=== PATIENT | female | born 1995 | race Caucasian/White ===

== ENCOUNTER 2024-07-16 19:52 | Emergency (ER) | payer OTHER, SELFPAY ==
--- NOTE | 2024-07-16 19:58 | [facility].EDGENADL ---
Discharge Plan Disposition Patient Disposition: Home, Self-Care Condition: Good Referrals Follow up/Referrals: Provider,Referral, MD [Primary Care Provider] - See instructions Activity Restrictions/Add. Instructions Additional Instructions/Restrictions: I recommend following up with your PCP for further evaluation especially if you have continued new or worsening signs or symptoms. May of course return to the emergency department as needed. Clinical Impressions Clinical Impression: Near syncope Headache Qualifiers: Headache type: unspecified Headache chronicity pattern: acute headache Intractability: not intractable Qualified Code(s): R51.9 - Headache, unspecified Print Language Print Language: Martiniquais Discharge ED Provider: Houston Milner General Adult HPI <RIC Rubin - Last Filed: 07/16/24 21:51> General Chief complaint: Dizziness Stated complaint: nausea,shaky,numb hands , headache Time Seen by Provider: 07/16/24 19:58 History of Present Illness HPI narrative: Patient presents for evaluation of headache nausea feeling shaky . Patient was looking at property to place her trailer and had acute onset of feeling shaky nausea felt like she might pass out. Patient does not have any chronic medical problems and is on no home medications. She does not smoke or drink. She thought it might be low blood sugar and went to a local fast food restaurant and was able to drink a sugar beverage however it did not improve. She then began having a headache. She denies any chest pain shortness of breath fever chills hemoptysis hematochezia melena vomiting diarrhea but does report that she feels like her heart is racing. Related Data Allergies Allergy/AdvReac Type Severity Reaction Status Date / Time No Known Allergies Allergy Verified 07/16/24 20:24 PFSH <RIC Rubin - Last Filed: 07/16/24 21:51> [facility] Disclaimer: The information contained in this section may have been updated after the patient was seen, as this information can be updated by other users. Social History (Updated 07/16/24 @ 21:51 by RIC Rubin) Smoking Status: Never smoker alcohol intake: never current occupational status: employed Travel in the last 8 weeks?: None Have you lived/traveled outside [place] in past 30 days?: No Contact w/someone who lives/traveled outside [place] past 30 days?: No Exposure to someone with infectious disease in past 14 days?: No Do you have a fever (greater than 100.4 F or 38 C)?: No Have you tested positive for COVID-19?: No Exposed to someone with COVID-19 in past 14 days?: No Do you have a sore throat?: No Do you have a cough?: No Do you have any weakness?: No Do you have any diarrhea?: No Are you experiencing any unusual bleeding?: No Do you have any muscle aches/pain?: No Do you have any abdominal pain?: No Are you experiencing loss of taste or smell?: No <RIC Rubin - Last Filed: 07/16/24 21:51> ROS Obtained: Yes Systems reviewed as appropriate & no additional complaints except as documented Physical Exam <RIC Rubin - Last Filed: 07/16/24 21:51> General General appearance: alert Respiratory Respiratory exam: Present normal lung sounds bilaterally Cardiovascular Cardiovascular exam: Present regular rate Neurological Exam Neurological exam: Present alert Medical Decision Making <RIC Rubin - Last Filed: 07/16/24 21:51> Medical Records Medical records reviewed: Yes I reviewed the patient's medical records. Screening: Per USPSTF and CDC recommendations, given the prevalence of disease in our region, it is our hospital?s policy to screen for HIV and viral Hepatitis for all patients aged 18 and over and those with ongoing risk factors. Asif Inquiry Pt receiving controlled substance: No Vital Signs: 07/16/24 20:04 07/16/24 21:31 07/16/24 21:54 Temperature 97.6 F 97.9 F Temperature Source Oral Oral Pulse Rate 82 77 Pulse Rate [Right Radial] 70 Respiratory Rate 16 16 16 Blood Pressure 106/61 L 106/61 L Blood Pressure [Right Arm] 131/82 Blood Pressure Mean [Right Arm] 98 Blood Pressure Position [Right Arm] Sitting 02 Sat by Pulse Oximetry 100 100 Oxygen Delivery Method Room Air Room Air Lab Data Lab results reviewed: Yes I reviewed the patient's lab results. Lab Results 07/16/24 20:05: WBC 8.2, RBC 4.16 L, Hgb 13.6, Hct 39.4, MCV 94.7, MCH 32.7 H, MCHC 34.5, RDW 11.2 L, Plt Count 285, MPV 10.2, Neut % (Auto) 65.4, Lymph % (Auto) 26.6, [place] % (Auto) 6.2, Eos % (Auto) 1.1, Baso % (Auto) 0.5, Neut # (Auto) 5.4, Lymph # (Auto) 2.2, [place] # (Auto) 0.5, Eos # (Auto) 0.1, Baso # (Auto) 0.0, D-Dimer 0.61 H, Sodium 134 L, Potassium 3.6, Chloride 101, Carbon Dioxide 29, Anion Gap 7.6, BUN 12, Creatinine 0.80, Estimated Creat Clear 121, Estimated GFR 86, Est GFR ( Amer) 104, Glucose 106 H, Calcium 9.5, Magnesium 2.2, Total Bilirubin 0.6, AST 25, ALT 20, Alkaline Phosphatase 44, Total Protein 7.3, Albumin 4.8, Globulin 2.5, Albumin/Globulin Ratio 1.9 H, TSH 2.35, Free T4 Index 2.5 L, Thyroxine (T4) 7.1, T3 Uptake 35, Serum HCG, Qual Negative 07/16/24 20:05 07/16/24 20:05 Orders (Tests/Meds): ED MEDICATIONS Discontinued Medications Generic Name Dose Route Start Last Admin Trade Name Freq PRN Reason Stop Dose Admin Dexamethasone Sodium Phosphate 10 mg 07/16/24 20:37 07/16/24 20:54 Dexamethasone 4mg/Ml 5ml Mdv IV 07/16/24 20:38 10 mg ONCE ONE Administration Diphenhydramine HCl 50 mg 07/16/24 20:37 07/16/24 20:55 Diphenhydramine 50mg/Ml Vial IV 07/16/24 20:38 50 mg ONCE ONE Administration Ondansetron HCl 4 mg 07/16/24 20:19 07/16/24 20:26 Ondansetron 4mg/2ml Vial IV 07/16/24 20:20 4 mg ONCE ONE Administration ORDERS Category Date Time Status CBC w/Auto Diff [Complete Blood Count Auto Diff] Stat Lab 07/16/24 20:05 Completed CMP [Comprehensive Metabolic Panel] Stat Lab 07/16/24 20:05 Completed D-Dimer Stat Lab 07/16/24 20:05 Completed HCG Qualitative, Serum Stat Lab 07/16/24 20:05 Completed Magnesium Stat Lab 07/16/24 20:05 Completed Thyroid Panel Stat Lab 07/16/24 20:05 Completed Medical Decision Narrative: In summary patient is a 28-year-old female who presents to the emergency department for evaluation of nausea, feeling shaky and headache.. Patient is hemodynamically stable with a blood pressure of 131/82 heart rate of 70 with normal sinus rhythm on the bedside monitor breathing 16 times a minute satting at 100% on room air upon arrival, afebrile at 97.6. Patient states that she feels like her heart is racing even though her heart rate 70.. Physical exam is remarkable for clear breath sounds with normal heart sounds Rachelle Coma Score 15 pupils equal round reactive to light patient has no nuchal rigidity.. Differential diagnosis includes electrolyte abnormality versus hypoglycemia versus near syncope versus panic attack etc. Initial workup will be conducted with hematologic labs twelve-lead EKG. Initial interventions include crystalloid bolus headache cocktail of Decadron diphenhydramine Toradol Zofran. Initial workup reviewed by me and her hematologic labs significant for white count of 8.2 normal H&H with no neutrophilic shift, D-dimer 0.61 a few years criteria thrombus is ruled out, sodium is 134 glucose 106 TSH is 2.35 and serum hCG is negative, EKG shows normal sinus rhythm without evidence of ACS.. Upon repeat evaluation patient reports complete resolution of her headache and her repeat fingerstick blood sugar is 120. Given this we have essentially ruled out any serious or life-threatening condition and while there remains diagnostic uncertainty as to the cause of her symptoms certainly hypoglycemia is possible as well as tachyarrhythmia even though we found no evidence of such here. I have advised the patient to follow-up closely with her PCP if she has continued new or worsening signs or symptoms or return to the ER as needed. <Houston Milner MD - Last Filed: 07/16/24 22:04> Vital Signs: 07/16/24 20:04 07/16/24 21:31 07/16/24 21:54 Temperature 97.6 F 97.9 F Temperature Source Oral Oral Pulse Rate 82 77 Pulse Rate [Right Radial] 70 Respiratory Rate 16 16 16 Blood Pressure 106/61 L 106/61 L Blood Pressure [Right Arm] 131/82 Blood Pressure Mean [Right Arm] 98 Blood Pressure Position [Right Arm] Sitting 02 Sat by Pulse Oximetry 100 100 Oxygen Delivery Method Room Air Room Air Lab Data Lab Results 07/16/24 20:05: WBC 8.2, RBC 4.16 L, Hgb 13.6, Hct 39.4, MCV 94.7, MCH 32.7 H, MCHC 34.5, RDW 11.2 L, Plt Count 285, MPV 10.2, Neut % (Auto) 65.4, Lymph % (Auto) 26.6, [place] % (Auto) 6.2, Eos % (Auto) 1.1, Baso % (Auto) 0.5, Neut # (Auto) 5.4, Lymph # (Auto) 2.2, [place] # (Auto) 0.5, Eos # (Auto) 0.1, Baso # (Auto) 0.0, D-Dimer 0.61 H, Sodium 134 L, Potassium 3.6, Chloride 101, Carbon Dioxide 29, Anion Gap 7.6, BUN 12, Creatinine 0.80, Estimated Creat Clear 121, Estimated GFR 86, Est GFR ( Amer) 104, Glucose 106 H, Calcium 9.5, Magnesium 2.2, Total Bilirubin 0.6, AST 25, ALT 20, Alkaline Phosphatase 44, Total Protein 7.3, Albumin 4.8, Globulin 2.5, Albumin/Globulin Ratio 1.9 H, TSH 2.35, Free T4 Index 2.5 L, Thyroxine (T4) 7.1, T3 Uptake 35, Serum HCG, Qual Negative Orders (Tests/Meds): ED MEDICATIONS Discontinued Medications Generic Name Dose Route Start Last Admin Trade Name Freq PRN Reason Stop Dose Admin Dexamethasone Sodium Phosphate 10 mg 07/16/24 20:37 07/16/24 20:54 Dexamethasone 4mg/Ml 5ml Mdv IV 07/16/24 20:38 10 mg ONCE ONE Administration Diphenhydramine HCl 50 mg 07/16/24 20:37 07/16/24 20:55 Diphenhydramine 50mg/Ml Vial IV 07/16/24 20:38 50 mg ONCE ONE Administration Ondansetron HCl 4 mg 07/16/24 20:19 07/16/24 20:26 Ondansetron 4mg/2ml Vial IV 07/16/24 20:20 4 mg ONCE ONE Administration ORDERS Category Date Time Status CBC w/Auto Diff [Complete Blood Count Auto Diff] Stat Lab 07/16/24 20:05 Completed CMP [Comprehensive Metabolic Panel] Stat Lab 07/16/24 20:05 Completed D-Dimer Stat Lab 07/16/24 20:05 Completed HCG Qualitative, Serum Stat Lab 07/16/24 20:05 Completed Magnesium Stat Lab 07/16/24 20:05 Completed Thyroid Panel Stat Lab 07/16/24 20:05 Completed ECG Data Tracing #1: I reviewed this ECG and interpreted as documented below: (Sinus rhythm with sinus arrhythmia 72 bpm with NV interval 148, QRS 102, QTc 431. Normal axis no acute ischemic change) Medical Decision Narrative: In summary patient is a 28-year-old female who presents to the emergency department for evaluation of nausea, feeling shaky and headache.. Patient is hemodynamically stable with a blood pressure of 131/82 heart rate of 70 with normal sinus rhythm on the bedside monitor breathing 16 times a minute satting at 100% on room air upon arrival, afebrile at 97.6. Patient states that she feels like her heart is racing even though her heart rate 70.. Physical exam is remarkable for clear breath sounds with normal heart sounds Philipp Coma Score 15 pupils equal round reactive to light patient has no nuchal rigidity.. Differential diagnosis includes electrolyte abnormality versus hypoglycemia versus near syncope versus panic attack etc. Initial workup will be conducted with hematologic labs twelve-lead EKG. Initial interventions include crystalloid bolus headache cocktail of Decadron diphenhydramine Toradol Zofran. Initial workup reviewed by me and her hematologic labs significant for white count of 8.2 normal H&H with no neutrophilic shift, D-dimer 0.61 a few years criteria thrombus is ruled out, sodium is 134 glucose 106 TSH is 2.35 and serum hCG is negative, EKG shows normal sinus rhythm without evidence of ACS.. Upon repeat evaluation patient reports complete resolution of her headache and her repeat fingerstick blood sugar is 120. Given this we have essentially ruled out any serious or life-threatening condition and while there remains diagnostic uncertainty as to the cause of her symptoms certainly hypoglycemia is possible as well as tachyarrhythmia even though we found no evidence of such here. I have advised the patient to follow-up closely with her PCP if she has continued new or worsening signs or symptoms or return to the ER as needed. I was consulted by the SHARMIN, and we discussed the complexity of the problems being addressed. I approved the treatment and management plan for this patient's care in the Emergency Department, thus performing a substantive portion of the medical decision making. Houston Milner MD Critical Care <RIC Rubin - Last Filed: 07/16/24 21:51> Critical Care Time Critical Care Time: No
--- NOTE | 2024-07-16 20:00 | ECG_ITS ---
APPROVED REPORT Exam: Resting ECG HR:72 bpm ECG Measurements Heart Rate 72 AXES UT 148 P 64 QRSd 102 QRS 58 QT 406 T 62 QTc 431 Conclusion Sinus rhythm Electronically signed by : TESSA ORR, 07/16/2024 23:11:13
--- NOTE | 2024-07-16 20:02 | PC.NURSE ---
Patients FSBS is 109.
[2024-07-16 20:04] VITALS: BP 131/82; PULSE 70; RESP 16; TEMP 36.4; O2SAT 100; BMI 25.8
[2024-07-16] MEDS: ONDANSETRON 4MG/2ML VIAL 4 MG IV (20:26)
[2024-07-16 20:31] LABS: Basophils % 0.5 % (0.1-2.0); Eosinophils # 0.1 Kmm3 (0.0-0.4); Eosinophils % 1.1 % (0.1-12.0); Hematocrit 39.4 % (37.0-47.0); Hemoglobin 13.6 g/dL (12.2-16.2); Immature Granulocytes # 0.02 10^3uL; Immature Granulocytes % 0.2 %; Lymphocytes # 2.2 K/mm3 (0.7-4.5); Lymphocytes % 26.6 % (10-50); Mean Corpuscular HGB Conc 34.5 g/dL (31.8-35.4); Mean Corpuscular Hemoglobin 32.7 pg (27.0-31.2); Mean Corpuscular Volume 94.7 fl (81-99); Mean Platelet Volume 10.2 fl (7.4-10.4); Monocytes # 0.5 K/mm3 (0.1-1.0); Monocytes % 6.2 % (1.7-9.3); Neutrophils # 5.4 K/mm3 (1.8-7.8); Neutrophils % 65.4 % (37.0-80.0); Nucleated Red Blood Cells # 0 10^3/uL; Nucleated Red Blood Cells % 0 %; Platelet Count 285 K/mm3 (142-424); Red Blood Count 4.16 M/mm3 (4.20-5.40); Red Cell Distribution Width 11.2 % (11.5-17.5); Red Cell Distribution Width-SD 38.7 fL; White Blood Count 8.2 K/mm3 (4.8-10.8)
[2024-07-16 20:39] LABS: Alanine Aminotransferase 20 U/L (12-78); Albumin Level 4.8 g/dl (3.5-5.0); Albumin/Globulin Ratio 1.9 (1.1-1.8); Alkaline Phosphatase 44 U/L (38-126); Anion Gap 7.6 mEq/L (5-15); Aspartate Amino Transferase 25 U/L (14-36); Bilirubin,Total 0.6 mg/dl (0.2-1.3); Blood Urea Nitrogen 12 mg/dl (7-17); Calcium 9.5 mg/dl (8.4-10.2); Carbon Dioxide 29 mmol/L (22.0-30.0); Chloride 101 mmol/L (98-107); Creatinine Clearance Estimated 121 mL/min (50-200); Estimated Glomerular Filt Rate 86 ml/min (>60); GFR (African American) 104 ML/MIN (>60); Globulin 2.5 g/dL (1.3-3.2); Glucose 106 mg/dl (74-100); Magnesium 2.2 mg/dl (1.6-2.3); Potassium 3.6 mmoL/L (3.5-5.1); Sodium 134 mmol/L (136-145); Total Protein,Serum 7.3 g/dl (6.3-8.2)
[2024-07-16 20:43] LABS: D-Dimer 0.61 ug/mL (0.0-0.5); HCG Qualitative, Serum Negative (Negative)
[2024-07-16] MEDS: DEXAMETHASONE 4MG/ML 5ML MDV 10 MG IV (20:54)
[2024-07-16] MEDS: diphenhydrAMINE 50MG/ML VIAL 50 MG IV (20:55)
[2024-07-16 21:03] LABS: Free Thyroxine Index 2.5 ug/dL (5.93-13.13); T4 (Thyroxine) 7.1 ug/dl (5.53-11.0); Triiodothryronine (T3) Uptake 35 % (23.5-40.5)
[2024-07-16 21:17] LABS: Thyroid Stimulating Hormone 2.35 uIU/mL (0.465-4.68)
[2024-07-16 21:31] VITALS: BP 106/61; PULSE 82; RESP 16; O2SAT 100
[2024-07-16 21:54] VITALS: BP 106/61; PULSE 77; RESP 16; TEMP 36.6; O2SAT 100
== END 2024-07-16 22:00 | disposition home or self-care (01) ==
PROVIDERS: Physician Assistant; Emergency Provider Emergency Medicine
DX: R55 Syncope and collapse (principal); R51.9 Headache, unspecified; R11.0 Nausea; I49.9 Cardiac arrhythmia, unspecified
CPT/HCPCS: 80053; 83735; 84436; 84443; 84479; 84703; 85025; 85378; 93005; 96374; 96375; 99284; J1100; J1200; J2405

== ENCOUNTER 2024-07-19 15:50 | Emergency (ER) | payer OTHER, SELFPAY ==
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
[2024-07-19 16:13] VITALS: BP 141/87; PULSE 85; RESP 18; TEMP 36.6; O2SAT 99; BMI 25.8
--- NOTE | 2024-07-19 16:15 | PC.NURSE ---
Krys MOISE speaking with Dyana Hilario [facility] JOSE MARIA about a consult. Qi MOISE states she will come up to evaluate the pt now.
--- NOTE | 2024-07-19 16:19 | CT_ITS ---
PROCEDURE INFORMATION: Exam: CT Head Without Contrast Exam date and time: 07/19/2024 5:20 PM Age: 28 years old Clinical indication: Other: Confusion TECHNIQUE: Imaging protocol: Computed tomography of the head without contrast. Radiation optimization: All CT scans at this facility use at least one of these dose optimization techniques: automated exposure control; mA and/or kV adjustment per patient size (includes targeted exams where dose is matched to clinical indication); or iterative reconstruction. COMPARISON: No relevant prior studies available. FINDINGS: Brain: Normal. No hemorrhage. Unremarkable white matter. No mass effect. Cerebral ventricles: No ventriculomegaly. Paranasal sinuses: Visualized sinuses are unremarkable. No fluid levels. Mastoid air cells: Visualized mastoid air cells are well aerated. Bones: Unremarkable. No acute fracture. Soft tissues: Unremarkable. IMPRESSION: No acute intracranial abnormality.
[2024-07-19] MEDS: hydrOXYzine pamoate 25MG CAPSULE 25 MG PO (16:29)
--- NOTE | 2024-07-19 16:41 | PC.NURSE ---
Qi with behavioral health at bedside with pt
[2024-07-19 17:08] LABS: Microscopic, Urine URINE MICROSCOPIC (MICROSCOPIC)
[2024-07-19 17:09] LABS: Appearance,Urine CLEAR (Clear); Bilirubin,Urine Negative (Negative); Blood, Urine Negative (Negative); Color,Urine YELLOW (Yellow); Glucose,Urine (UA) Negative (Negative); Ketones,Urine Negative (Negative); Leukocyte Esterase,Urine Negative (Negative); Nitrate,Urine Negative (Negative); Protein,Urine Negative (Negative); Urobilinogen,Urine 0.2 EU/dl (0.2)
[2024-07-19 17:12] LABS: Urine Pregnancy, HCG Qual. Negative (Negative)
[2024-07-19 17:21] LABS: Benzodiazepines Screen,Urine Negative ng/ml (<200)
[2024-07-19 17:22] LABS: Amphetamine/Metha Screen,Urine Negative ng/ml (<1000); Barbiturates Screen,Urine Negative ng/ml (<200)
[2024-07-19 17:23] LABS: Cannabinoid Screen,Urine Negative ng/ml (<50)
[2024-07-19 17:24] LABS: Cocaine Screen,Urine Negative ng/ml (<300); Methadone Screen,Urine Negative ng/ml (<300)
[2024-07-19 17:25] LABS: Opiate Screen,Urine Negative ng/ml (<300); Specific Gravity, Urine <= 1.005 (1.005-1.030)
[2024-07-19 17:26] LABS: Phencyclidine Screen,Urine Negative ng/ml (<25)
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
[2024-07-19 18:25] VITALS: BP 111/70; PULSE 78; RESP 16; TEMP 36.6; O2SAT 98
== END 2024-07-19 18:27 | disposition home or self-care (01) ==
PROVIDERS: Nurse Practitioner; Emergency Provider Emergency Medicine
DX: R41.89 Other symptoms and signs involving cognitive functions and awareness (principal); F43.22 Adjustment disorder with anxiety
CPT/HCPCS: 70450; 80307; 81001; 81025; 99284